=== PATIENT | female | born 1980 | race Two or more races ===

== ENCOUNTER → 2018-11-17 | Outpatient (CLI) | payer OTHER ==
[~2018-11-17] MED LIST: ACEBUTCAFT PO; ACET325; ACET325 PO; AMOCLA875 PO; AMOX500 PO; AZIT250 PO; Bactrim Ds Tab1 EACH PO; CEPH500 PO; CIPR500 PO; DOXY100 PO; Doxycycline Hy100 MG PO; Flagyl500 MG PO; HYDACE10B PO; HYDACE5 PO; HYDACE5325 PO; HYDACE7.5; HYDR1TAB94 PO; IBUHYD PO; IBUP600 PO; KETO10 PO; LEVFLO500 PO; LEVSOD100 PO; LORA2 PO; MECL25 PO; MEDR150I IM; META400 PO; METPRE4DP; METR250 PO; MULVITMINE PO; NAPR500 PO; NAPR550 PO; Norco 5-325 Ta1 EACH PO; OMEP40CA12 PO; ONDA4 PO; ONDA4ODT MM; OXYACE5T PO; PENACE PO; PHENA200 PO; PRED20 PO; PREDNISONE; PROACE100 PO; PROC10 PO; PROCODE120 PO; PRODEXEL PO; PROM25; PROM25 PO; PROM25S PR; PROP10 PO; Permethrin60 GM TP; Prednisone20 MG PO; RXHYDACE PO; RXLORA1 PO; RXNAPNA550 PO; RXONDA4ODT MM; RXOXYACE PO; RXPROM25 PO; SULTRIDS PO; TRAM50 PO; Ultram50 MG PO; Zantac150 MG PO; Zithromax250 MG PO; Zofran Odt4 MG SL; [UNRECOGNIZED DRUG - OTHER] LEFTEYE
== END | disposition home or self-care (01) ==
LOC: LAB EV 19:05 → LAB SHORT 19:05
DX: N75.1 Abscess of Bartholin's gland (principal)
CPT/HCPCS: 87070; 87075; 87205

== ENCOUNTER 2018-12-02 10:18 | Day surgery (SDC) | payer OTHER ==
[~2018-12-02] VITALS: Ht 149.9 cm; Wt 53.2 kg
[2018-12-02] MEDS ORDERED: ALBU90OI61 (11:46)
--- NOTE | 2018-12-02 12:28 | NUR ---
12/02/18 1228 Bonnie Krishna PT. WAS UPDATED ON SURGERY DELAY BY [facility] [email or web address] CALL LIGHT WITHIN REACH & PT. GIVEN WARM BLANKET BY [facility] [email or web address]. PT. GIVEN MAGAZINES TO REACH WHILE SHE WAS WAITING FOR HER SURGERY.
--- NOTE | 2018-12-02 15:51 | NUR ---
12/02/18 1551 Otis Matthews LATE ENTRY NARRATIVE PATIENT INTO SDU RECLINER RESTING, PATIENT REPORTS 7/10 PAIN, PER MD ORDERS GAVE IV PAIN MEDICATION, WILL CONTINUE TO MONITOR. PATIENT VSS, TOLERATING PO FLUIDS AND CRACKERS WELL. PAIN REASSESSMENT, PATIENT REPORTS 6/10 PAIN, GAVE IV PAIN MEDS PER MD ORDERS. WILL CONTINUE TO MONITOR. PATIENT VSS, CALL LIGHT WITHIN REACH PAIN REASSESSMENT, PATIENT REPORTS 5/10 PAIN, GAVE IV PAIN MEDS PER MD ORDERS. WILL CONTINUE TO MONITOR. PATIENT VSS, CALL LIGHT WITHIN REACH DISCHARGE INSTRUCTIONS REVIEWED WITH PATIENT, NO QUESTIONS AT THIS TIME. PAIN REASSESSMENT, PATIENT REPORTS 5/10, GAVE IV PAIN MEDS PER MD ORDERS. PATIENT VSS. PATIENT STATES PAIN IS TOLERABLE. NURSE ASSISTED PATIENT TO HER RIDE HOME.
== END 2018-12-02 15:30 | disposition home or self-care (01) ==
LOC: ORSCSDS 10:18
PROVIDERS: Obstetrics & Gynecology
PROC: 0U9L0ZZ Drainage of Vestibular Gland, Open Approach (ICD-10-PCS; principal; 2018-12-02 11:30)
DX: N75.1 Abscess of Bartholin's gland (principal); J45.909 Unspecified asthma, uncomplicated; F17.210 Nicotine dependence, cigarettes, uncomplicated; Z79.899 Other long term (current) drug therapy
CPT/HCPCS: J0690; J1100; J2250; J2405; J3010; J7120

== ENCOUNTER 2019-04-07 20:49 | Emergency (ER) | payer OTHER ==
[~2019-04-07] VITALS: Ht 149.9 cm; Wt 59.0 kg
[~2019-04-07 20:49] MED LIST changes: +ALBU90OI61
[2019-04-07] MEDS ORDERED: Synthroid88 MCG PO (21:17)
[2019-04-07] MEDS ORDERED: ERYT1OIN LEFTEYE (22:07)
== END 2019-04-07 22:15 | disposition home or self-care (01) ==
LOC: ER 20:49
DX: H10.212 Acute toxic conjunctivitis, left eye (principal); Z87.442 Personal history of urinary calculi; F17.210 Nicotine dependence, cigarettes, uncomplicated; Z88.8 Allergy status to other drugs, medicaments and biological substances; Z79.899 Other long term (current) drug therapy
CPT/HCPCS: 99283

== ENCOUNTER 2019-04-29 14:26 | Emergency (ER) | payer OTHER ==
[~2019-04-29] VITALS: Ht 149.9 cm; Wt 58.5 kg
[~2019-04-29 14:26] MED LIST changes: +ERYT1OIN LEFTEYE; +Synthroid88 MCG PO
[2019-04-29 15:08] LABS: BASOPHILS ABSOLUTE AUTO 0.05 K/mm3 (0.00-0.23); BASOPHILS PERCENT AUTO 1 % (0-2); EOSINOPHILS ABSOLUTE AUTO 0.51 K/mm3 (0.00-0.68); EOSINOPHILS PERCENT AUTO 7 % (0-6); Hematocrit 41.6 % (33.0-51.0); Hemoglobin 13.6 g/dL (11.5-16.0); IMMATURE GRAN ABSOLUTE AUTO 0.02 K/mm3 (0.00-0.10); IMMATURE GRAN PERCENT AUTO 0 % (0-1); LYMPHOCYTES PERCENT AUTO 25 % (21-46); MONOCYTES ABSOLUTE AUTO 0.39 K/mm3 (0.16-1.47); MONOCYTES PERCENT AUTO 5 % (4-13); Mean Corpuscular HGB 33.6 pg (26.0-34.0); Mean Corpuscular HGB Conc 32.7 g/dL (31.5-36.5); Mean Corpuscular Volume 103 fL (80-100); Mean Platelet Volume 9.2 fL (9.1-12.4); NEUTROPHILS ABSOLUTE AUTO 4.77 K/mm3 (1.96-9.15); NEUTROPHILS PERCENT AUTO 62 % (41-73); Platelet Count 397 K/mm3 (150-400); RDW Coefficient Variation 12.8 % (11.7-14.2); RDW Standard Deviation 49.1 fL (35.1-46.3); Red Blood Cell Count 4.05 M/mm3 (3.80-5.20); White Blood Cell Count 7.64 K/mm3 (4.00-11.30)
[2019-04-29 15:30] LABS: Alanine Aminotransfer (ALT/SGP 28 U/L (12-78); Albumin, Blood 3.7 g/dL (3.4-5.0); Albumin/Globulin Ratio 0.9 (0.8-1.8); Alk Phos 80 U/L (50-136); Anion Gap 9 mmol/L (6-16); Aspartate Aminotrans (AST/SGOT 21 U/L (12-37); Bilirubin, Total 0.3 mg/dL (0.1-1.0); Blood Urea Nitrogen 13 mg/dL (8-24); Bun/Creatinine Ratio 16.5 (12.0-20.0); CO2, Blood 22 mmol/L (21-32); Calcium, Blood 8.6 mg/dL (8.5-10.1); Chloride, Blood 110 mmol/L (98-108); Creatinine, Blood 0.79 mg/dL (0.40-1.00); Globulin, Blood 4.2 g/dL (2.2-4.0); Glomerular Filtration Rate >60 (60-); Glucose, Blood 103 mg/dL (70-99); Potassium, Blood 3.3 mmol/L (3.5-5.5); Sodium, Blood 141 mmol/L (136-145); Total Protein, Blood 7.9 g/dL (6.4-8.2)
[2019-04-29 19:13] LABS: Source, Urine Clean Catch
[2019-04-29 19:23] LABS: Appearance, Urine Hazy (Clear); Bilirubin, Urine Neg (Neg); Blood, Urine 5+ (Neg); Color, Urine Yellow (P-Yellow); Glucose Qualitative, Urine Neg (Neg); Ketones, Urine Neg (Neg); Leukocyte Esterase, Urine 1+ (Neg); Nitrite, Urine Neg (Neg); Protein, Urine 2+ (Neg); Urobilinogen, Urine NORM (Normal)
[2019-04-29 19:36] LABS: Uric Acid Crystals Few /hpf
[2019-04-29 19:37] LABS: Bacteria Few /hpf; Squamous Epithelial Cells Few /hpf (Few)
[2019-04-29] MEDS ORDERED: ONDA4ODT MM (19:52)
[2019-04-29] MEDS ORDERED: Cyclobenzaprine5 MG PO (19:52)
[2019-04-29] MEDS ORDERED: Flagyl500 MG PO (19:52)
[2019-04-29] MEDS ORDERED: NAPR500 PO (19:52)
[2019-04-29] MEDS ORDERED: CEFP200 PO (19:52)
== END 2019-04-29 20:09 | disposition home or self-care (01) ==
LOC: ER 14:26
PROVIDERS: Physician Assistant
DX: K52.9 Noninfective gastroenteritis and colitis, unspecified (principal); Z88.8 Allergy status to other drugs, medicaments and biological substances; Z79.899 Other long term (current) drug therapy; F17.210 Nicotine dependence, cigarettes, uncomplicated
CPT/HCPCS: 36415; 74177; 80053; 81001; 81025; 83690; 85025; 87086; 96361; 96374-59; 96375; 99284-25; A9270-GY; J1885; J2405; J7030; Q9967

== ENCOUNTER → 2022-03-18 | Outpatient (CLI) | payer OTHER ==
[~2022-03-18] MED LIST changes: +CEFP200 PO; +Cyclobenzaprine5 MG PO
[2022-03-20 16:11] LABS: HPV 16 Negative (Negative); HPV 18 Negative (Negative); HPV OTHER HR TYPES Negative (Negative)
== END | disposition home or self-care (01) ==
LOC: LAB SHORT 16:11 → LAB 16:11
PROVIDERS: Nurse Practitioner Family
DX: Z11.51 Encounter for screening for human papillomavirus (HPV) (principal)
CPT/HCPCS: 87624; G0123